=== PATIENT | female | born 1940 | race Caucasian/White ===

== ENCOUNTER 2019-12-11 01:18 | Observation (INO) ==
[2019-12-11 02:39] LABS: Basophils % 0.2 % (0.0-0.8); Eosinophils # 0.2 10*3/uL (0.0-0.87); Eosinophils % 1.1 % (0.00-10.9); Hematocrit 38.6 VOL% (35.7-47.0); Hemoglobin 12.9 GM/DL (12.0-16.0); Immature Granulocytes % 0.5 %; Immature Granulocytes Absolute 0.08 #; Lymphocytes # 1.6 10*3/uL (1.4-4.0); Lymphocytes % 9.4 % (21.3-54.2); Mean Corpuscular HGB Conc 33.4 GM/DL (32-36); Mean Corpuscular Volume 91.3 FL (87-102); Mean Platelet Volume 9.6 FL (9.6-12.0); Monocytes % 7.6 % (1.7-12.7); Neutrophils % 81.2 % (38.7-73.9); Platelet Count 277 T/CUMM (130-400); Red Blood Count 4.23 MC/CUMM (3.8-5.5); White Blood Count 16.6 T/CUMM (4-12)
[2019-12-11 02:48] LABS: INR 0.9; Partial Thromboplastin Time 26.2 SECS (20.8-36.0)
[2019-12-11 02:52] LABS: Albumin 3.8 G/DL (3.4-5.0); Bilirubin,Total 0.4 MG/DL (0.2-1.0); Calcium 8.4 MG/DL (8.5-10.1); Osmolality,Calculated 258.9 MOS/KG (273-304); Total Protein 6.8 G/DL (6.4-8.3)
[2019-12-11] MEDS ORDERED: LEVOFLOXACIN INJ 750 MG in PREMIX 1 EACH IV STA (03:40)
[2019-12-11 03:41] LABS: Apearance,Urine Clear (Clear); Bilirubin,Urine Negative (Negative); Blood, Urine NEGATIVE (Negative); Glucose,Urine (UA) Negative (Negative); Ketones,Urine Negative (Negative); Nitrite,Urine Negative (Negative); Protein,Urine Negative; RBC,Urine 1 /HPF (0-4); Urine Color Straw (Yellow); Urine Specific Gravity 1.005 (1.001-1.035)
[2019-12-11 03:42] LABS: Urine Urobilinogen 0.2 EU/DL (0.2-1.0)
[2019-12-11] MEDS ORDERED: ACETAMINOPHEN 325 MG TABLET PO PRN (05:37)
[2019-12-11] MEDS ORDERED: ONDANSETRON 4 MG/2 ML VIAL IV PRN (05:37)
[2019-12-11] MEDS: ENOXAPARIN 40 MG/0.4 ML SYRINGE SUBCUT SCH (09:20)
[2019-12-11] MEDS: CETIRIZINE 10 MG TABLET PO SCH (09:20)
[2019-12-11] MEDS: PANTOPRAZOLE 40 MG TABLET PO SCH (09:20)
[2019-12-11] MEDS ORDERED: MAGNESIUM SULF RIDER 2 GM in PREMIX 1 EACH IV ONE (09:27)
[2019-12-11] MEDS ORDERED: PROPAFENONE 150 MG TABLET PO SCH (11:00)
[2019-12-11] MEDS ORDERED: LEVALBUTEROL 0.31 MG/3 ML NEB RESP TX ONE (12:32)
[2019-12-11] MEDS ORDERED: LEVALBUTEROL 0.31 MG/3 ML NEB RESP TX PRN (12:32)
[2019-12-11] MEDS: lisinopriL 20 MG TABLET PO SCH (21:24)
[2019-12-11] MEDS: CHOLECALCIFEROL 1,000 UNIT TABLET PO SCH (21:24)
[2019-12-11] MEDS: DILTIAZEM CD 240 MG CAPSULE PO SCH (21:24)
[2019-12-12 05:03] LABS: Basophils % 0.3 % (0.0-0.8); Eosinophils # 0.1 10*3/uL (0.0-0.87); Eosinophils % 1.9 % (0.00-10.9); Hematocrit 31.1 VOL% (35.7-47.0); Hemoglobin 10.5 GM/DL (12.0-16.0); Immature Granulocytes % 0.3 %; Immature Granulocytes Absolute 0.02 #; Lymphocytes # 2.5 10*3/uL (1.4-4.0); Lymphocytes % 33.1 % (21.3-54.2); Mean Corpuscular HGB Conc 33.8 GM/DL (32-36); Mean Corpuscular Volume 90.4 FL (87-102); Mean Platelet Volume 9.5 FL (9.6-12.0); Monocytes % 12.4 % (1.7-12.7); Platelet Count 225 T/CUMM (130-400); Red Blood Count 3.44 MC/CUMM (3.8-5.5); Red Cell Distribution Width 13.2 % (9.3-17.3); White Blood Count 7.4 T/CUMM (4-12)
[2019-12-12 05:41] LABS: Albumin 2.7 G/DL (3.4-5.0); Bilirubin,Total 1.1 MG/DL (0.2-1.0); Calcium 8.2 MG/DL (8.5-10.1); Osmolality,Calculated 253.1 MOS/KG (273-304); Total Protein 5.7 G/DL (6.4-8.3)
[2019-12-12] MEDS: LEVOFLOXACIN INJ 500 MG in PREMIX 1 EACH IV SCH (05:46)
[2019-12-12] MEDS ORDERED: SODIUM CHLORIDE 0.9% 1,000 ML IV SCH (08:30)
[2019-12-12] MEDS: CETIRIZINE 10 MG TABLET PO SCH (09:08)
[2019-12-12] MEDS: PANTOPRAZOLE 40 MG TABLET PO SCH (09:08)
[2019-12-12] MEDS: ENOXAPARIN 40 MG/0.4 ML SYRINGE SUBCUT SCH (09:09)
[2019-12-12] MEDS: GABAPENTIN 100 MG CAPSULE PO SCH ×2 (10:50→14:15)
[2019-12-12] MEDS: ACETAMINOPHEN 325 MG TABLET PO SCH ×3 (11:38→21:22)
[2019-12-12] MEDS: LIDOCAINE 5% PATCH TRANSDERM SCH (11:38)
[2019-12-12] MEDS: CHOLECALCIFEROL 1,000 UNIT TABLET PO SCH (21:22)
[2019-12-12] MEDS: DILTIAZEM CD 240 MG CAPSULE PO SCH (21:22)
[2019-12-12] MEDS: lisinopriL 20 MG TABLET PO SCH (21:23)
[2019-12-13 04:45] LABS: Basophils % 0.5 % (0.0-0.8); Eosinophils # 0.3 10*3/uL (0.0-0.87); Eosinophils % 4.8 % (0.00-10.9); Hematocrit 33.1 VOL% (35.7-47.0); Hemoglobin 11.2 GM/DL (12.0-16.0); Immature Granulocytes % 0.2 %; Immature Granulocytes Absolute 0.01 #; Lymphocytes # 2.4 10*3/uL (1.4-4.0); Lymphocytes % 42.6 % (21.3-54.2); Mean Corpuscular HGB Conc 33.8 GM/DL (32-36); Mean Corpuscular Volume 90.7 FL (87-102); Monocytes % 12.2 % (1.7-12.7); Neutrophils % 39.7 % (38.7-73.9); Platelet Count 233 T/CUMM (130-400); Red Blood Count 3.65 MC/CUMM (3.8-5.5); Red Cell Distribution Width 13.1 % (9.3-17.3); White Blood Count 5.6 T/CUMM (4-12)
[2019-12-13 05:09] LABS: Calcium 8.4 MG/DL (8.5-10.1); Osmolality,Calculated 261.5 MOS/KG (273-304)
[2019-12-13] MEDS: LEVOFLOXACIN INJ 500 MG in PREMIX 1 EACH IV SCH (06:26)
[2019-12-13] MEDS: CETIRIZINE 10 MG TABLET PO SCH (08:24)
[2019-12-13] MEDS: ENOXAPARIN 40 MG/0.4 ML SYRINGE SUBCUT SCH (08:24)
[2019-12-13] MEDS: PANTOPRAZOLE 40 MG TABLET PO SCH (08:24)
[2019-12-13] MEDS: ACETAMINOPHEN 325 MG TABLET PO SCH (08:26)
[2019-12-13] MEDS: LIDOCAINE 5% PATCH TRANSDERM SCH (08:26)
[2019-12-13 09:41] VITALS: BP 129/76
== END 2019-12-13 11:15 | disposition home or self-care (01) ==
LOC: N.EDINP 01:18 → N.ED 01:18 → N.TELEN 05:52
PROVIDERS: ADMIT Internal Medicine; ATTEND Internal Medicine